=== PATIENT | female | born 1935 | race African-American/Black ===

== ENCOUNTER 2017-09-02 07:57 | Emergency (ER) | payer MEDICARE, MEDICAID ==
[~2017-09-02] VITALS: Ht 152.4 cm; Wt 53.0 kg
[~2017-09-02 07:57] MED LIST: AMLO10TA80 PO; ATOR-2 PO; COR25 PO; HYDR-4135 PO; LISI-604 PO; PIOG15TA6 PO
[2017-09-02] MEDS: HYDROCODONE/ACETAMINOPHEN 5/325MG TABLET PO ONE (08:48)
[2017-09-02 10:20] VITALS: BP 189/80
== END 2017-09-02 11:25 | disposition home or self-care (01) ==
LOC: ER 07:57
DX: S83.91XA Sprain of unspecified site of right knee, initial encounter (principal); W01.0XXA Fall on same level from slipping, tripping and stumbling without subsequent striking against object, initial encounter; Y93.89 Activity, other specified; Y92.89 Other specified places as the place of occurrence of the external cause; Y99.8 Other external cause status
CPT/HCPCS: 73562; 99284; L1830

== ENCOUNTER 2018-12-21 11:15 | Inpatient (IN) | payer MEDICARE, MEDICAID ==
[~2018-12-21] VITALS: Ht 154.9 cm; Wt 52.2 kg
[2018-12-21] MEDS ORDERED: ALTEPLASE 2MG/VIAL ITC NR ×2 (12:30→15:15)
[2018-12-21] MEDS ORDERED: ALTEPLASE 2MG/VIAL ITC ONE (13:30)
[2018-12-21 15:06] LABS: HEMATOCRIT. 32.7 % (36.0-48.0); HEMOGLOBIN. 10.2 g/dL (12.0-16.0); MEAN CORPUSCULAR HEMOGLOBIN 23.9 pg (28.0-32.0); MEAN CORPUSCULAR VOLUME 76.6 fL (81.0-99.0); MEAN PLATELET VOLUME 9.2 fl (7.4-10.4); PLATELET 296 x1000/uL (130-400); RED BLOOD CELL COUNT 4.26 mill/uL (4.2-5.4); RED CELL DISTRIBUTION WIDTH 20.2 % (11.6-14.6)
[2018-12-21 15:14] LABS: CHLORIDE 102 mEq/L (98-107)
[2018-12-21 15:43] LABS: PLATELET ESTIMATE NORMAL
[2018-12-21] MEDS ORDERED: HYDRALAZINE 20MG/ML VIAL IV ONE (17:15)
[2018-12-21] MEDS ORDERED: ONDANSETRON HCL 4MG/2ML INJ IV PRN (17:45)
[2018-12-21] MEDS ORDERED: ACETAMINOPHEN 325MG TABLET PO PRN (17:45)
[2018-12-21 23:55] VITALS: BP 153/74
[2018-12-22] VITALS (7 sets, daily range): BP systolic 115–168; BP diastolic 70–95
[2018-12-22] MEDS ORDERED: HYDRALAZINE 20MG/ML VIAL IV PRN
[2018-12-22] MEDS ORDERED: LABETALOL 5MG/ML SYR 20 MG/4 ML SYRINGE IV NR (00:30)
[2018-12-22] MEDS ORDERED: DONE10TA11 PO (00:54)
[2018-12-22] MEDS ORDERED: METO100T16 PO (00:54)
[2018-12-22] MEDS: NIFEDIPINE XL 60MG TAB PO SCH ×2 (08:43→16:53)
[2018-12-22 09:20] LABS: HEMATOCRIT. 29.7 % (36.0-48.0); HEMOGLOBIN. 9.3 g/dL (12.0-16.0); MEAN CORPUSCULAR VOLUME 76.3 fL (81.0-99.0); MEAN PLATELET VOLUME 9.3 fl (7.4-10.4); PLATELET 236 x1000/uL (130-400); RED CELL DISTRIBUTION WIDTH 20.2 % (11.6-14.6)
[2018-12-22 14:39] LABS: PLATELET ESTIMATE NORMAL
[2018-12-22] MEDS ORDERED: DEXTROSE 50% WATER 50ML SYRINGE IV PRN (17:00)
[2018-12-22] MEDS: BLOOD SUGAR DIAGNOSTIC STRIP TEST SCH ×2 (17:10→20:52)
[2018-12-22] MEDS: INSULIN LISPRO 100 UNITS/ML SUBCUT SCH ×2 (17:40→20:52)
[2018-12-23] MEDS ORDERED: LOSARTAN POTASSIUM 50 MG TABLET PO SCH (09:00)
== END 2018-12-22 22:15 | DRG 314 ==
LOC: ER 12:37 → 8WST 17:17 → EDBEDREQ 17:20 → ENRESERV 20:30 → 8WST 12-22 14:51
PROVIDERS: ADMIT Internal Medicine; ATTEND Internal Medicine
PROC: 02WYX3Z Revision of Infusion Device in Great Vessel, External Approach (ICD-10-PCS; 2018-12-21)
PROC: 5A1D70Z Performance of Urinary Filtration, Intermittent, Less than 6 Hours Per Day (ICD-10-PCS; 2018-12-21)
PROC: 5A1D70Z Performance of Urinary Filtration, Intermittent, Less than 6 Hours Per Day (ICD-10-PCS; principal; 2018-12-22)
DX: T82.868A Thrombosis due to vascular prosthetic devices, implants and grafts, initial encounter (principal); N18.6 End stage renal disease; E44.0 Moderate protein-calorie malnutrition; I12.0 Hypertensive chronic kidney disease with stage 5 chronic kidney disease or end stage renal disease; D63.8 Anemia in other chronic diseases classified elsewhere; I16.0 Hypertensive urgency; E11.649 Type 2 diabetes mellitus with hypoglycemia without coma; E11.22 Type 2 diabetes mellitus with diabetic chronic kidney disease; Y83.8 Other surgical procedures as the cause of abnormal reaction of the patient, or of later complication, without mention of misadventure at the time of the procedure; Y92.89 Other specified places as the place of occurrence of the external cause; Z86.73 Personal history of transient ischemic attack (TIA), and cerebral infarction without residual deficits; Z99.2 Dependence on renal dialysis; Z68.21 Body mass index [BMI] 21.0-21.9, adult; Z79.899 Other long term (current) drug therapy
CPT/HCPCS: 36415; 71045; 80048; 82962; 83036; 83880; 84484; 93005; 93970; 96374; 99285; J0360; J2997; J3490